=== PATIENT | female | born 2000 | race Caucasian/White ===

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

== ENCOUNTER 2018-01-03 14:38 | Emergency (ER) | payer BC ==
--- NOTE | 2018-01-03 15:56 | ER Document Report ---
HPI - HPI Pain Level: 4 Notes: Patient is a 17-year-old female with a history of ongoing left knee pain who presents to the ED complaining of acute left knee pain status post twist injury prior to arrival. Patient states that she was going on her stairs when she twisted her knee and then landed on the anterior part of her knee. Patient denies any head injury, loss of conscious, nausea/vomiting. Patient states that she has no other pain anywhere else. The pain does not radiate. Patient states that she is scheduled for a laparoscopic procedure in January with Dr. Newsome. She has no other complaints or concerns today. Denies any headache, fever, neck pain, URI, sore throat, chest pain, palpitations, syncope, cough, shortness of breath, wheeze, dyspnea, abdominal pain, nausea/vomiting/diarrhea, urinary retention, dysuria, hematuria, or rash. - ROS Systems Reviewed and Negative: Yes All other systems reviewed and negative - REPRODUCTIVE Reproductive: DENIES: : - MUSCULOSKELETAL Musculoskeletal: REPORTS: Extremity pain - left knee Past Medical History - Social History Smoking Status: Never Smoker Frequency of alcohol use: None Drug Abuse: None Family History: Reviewed & Not Pertinent Patient has suicidal ideation: No Patient has homicidal ideation: No Renal/ Medical History: Denies: Hx Peritoneal Dialysis - Immunizations Immunizations up to date: Yes Hx Diphtheria, Pertussis, Tetanus Vaccination: Yes Vertical Provider Document - CONSTITUTIONAL Agree With Documented VS: Yes Notes: PHYSICAL EXAMINATION: GENERAL: Well-appearing, well-nourished and in no acute distress. LUNGS: Breath sounds clear to auscultation bilaterally and equal. No wheezes rales or rhonchi. HEART: Regular rate and rhythm without murmurs, rubs, gallops. Musculoskeletal: Left knee: FROM to passive/active. Strength 5+/5. + mild tenderness to the anterior knee b/l. No obvious swelling, erythema, ecchymosis , or deformity noted. Shivani negative. Ligamentous stable, but pt does give me resistance in doing these tests. N/V intact distal. No calf tenderness or other bony tenderness appreciated. Extremities: No cyanosis, clubbing, or edema b/l. Peripheral pulses 2+. Capillary refill less than 3 seconds. NEUROLOGICAL: Normal speech, normal gait. Normal sensory, motor exams PSYCH: Normal mood, normal affect. SKIN: Warm, Dry, normal turgor, no rashes or lesions noted. - INFECTION CONTROL TRAVEL OUTSIDE OF THE [place] IN LAST 30 DAYS: No Course - Re-evaluation Re-evalutation: 01/03/18 17:15 Patient is an afebrile, well-hydrated, 17-year-old female who presents to the ED with left knee pain, suspect sprain versus strain at this time. Vitals are acceptable. PE is otherwise unremarkable for any neurovascular compromise, obvious tendon/ligament rupture, obvious fracture/dislocation, septic joint. X- ray was unremarkable for any acute pathology. Patient declined any knee immobilizer or crutches today. Recommend conservative measures for symptoms. Discussed this with her orthopedic provider this week. Return to the ED with any worsening/concerning symptoms otherwise as reviewed discharge. Recheck with your PCM in 1 week as well. Patient is in agreement. - Vital Signs Vital signs: Temp Pulse Resp BP Pulse Ox 98.6 F 75 18 126/56 H 99 01/03/18 14:52 01/03/18 14:52 01/03/18 14:52 01/03/18 14:52 01/03/18 14:52 Discharge - Discharge Clinical Impression: Left knee pain Qualifiers: Chronicity: acute Qualified Code(s): M25.562 - Pain in left knee Condition: Stable Disposition: HOME, SELF-CARE Instructions: Ice & Elevation ([facility]), Sprained Knee ([facility]) Additional Instructions: Rest, Ice, Compression, Elevation Tylenol/ibuprofen as needed Light stretches daily Strength exercises as able Moist heat and massage may help F/u with your PCP in 3-5 days for a recheck Discuss with your Orthopedic provider this week. Return to the ED with any worsening symptoms and/or development of fever, headache, chest pain, palpitations, syncope, shortness of breath, trouble breathing, abdominal pain, n/v/d, muscle weakness/paralysis, numbness/tingling, swelling, redness, or other worsening symptoms that are concerning to you. Forms: Elevated Blood Pressure Referrals: PADMINI HAJI MD [ACTIVE STAFF] - Follow up as needed
--- NOTE | 2018-01-03 17:07 | RADIOLOGY REPORT (SQ) ---
EXAM DESCRIPTION: KNEE LEFT 4 VIEW COMPLETED DATE/TIME: 01/03/2018 4:45 pm REASON FOR STUDY: left knee pain COMPARISON: 11/29/2012 NUMBER OF VIEWS: Four views. TECHNIQUE: AP, lateral, and both oblique radiographic images acquired of the left knee. LIMITATIONS: None. FINDINGS: MINERALIZATION: Normal. BONES: No acute fracture or dislocation. No worrisome bone lesions. JOINT: No effusion. SOFT TISSUES: No soft tissue swelling. No radio-opaque foreign body. OTHER: No other significant finding. IMPRESSION: NEGATIVE STUDY OF THE LEFT KNEE. NO RADIOGRAPHIC EVIDENCE OF ACUTE INJURY. TECHNICAL DOCUMENTATION: JOB ID: [id number] [employer]- All Rights Reserved Reading location - IP/workstation name: [email or web address]
[2018-01-03 17:26] VITALS: BP 116/61
== END 2018-01-03 17:25 | disposition home or self-care (01) ==
LOC: ER 14:38
DX: M25.562 Pain in left knee (principal)
CPT/HCPCS: 99283

== ENCOUNTER 2018-04-11 11:50 | Emergency (ER) | payer OTHER, BC ==
[2018-04-11] MEDS ORDERED: CYCLOBENZAPRINE HCL 10 MG TABLET PO ONE (13:03)
--- NOTE | 2018-04-11 13:05 | ER Document Report ---
ED Neck/Back Problem - General Chief Complaint: Neck and Upper Back Pain Stated Complaint: HEAD AND NECK PAIN Time Seen by Provider: 04/11/18 12:25 Mode of Arrival: Ambulatory Information source: Patient Notes: Patient is a 17-year-old female who presents with chief complaint of posterior neck pain. Patient reports that she works at [employer] and yesterday she was reaching over her head to grab a box when the box fell on top of her head. She reports that she has had pain to the back of her neck since the incident. Patient denies any fever, headache, vomiting or loss of consciousness. TRAVEL OUTSIDE OF THE [place] IN LAST 30 DAYS: No - Related Data Allergies/Adverse Reactions: No Known Allergies Allergy (Verified 04/11/18 11:51) Past Medical History - General Information source: Patient - Social History Smoking Status: Never Smoker Frequency of alcohol use: None Drug Abuse: None Family History: Reviewed & Not Pertinent Patient has suicidal ideation: No Patient has homicidal ideation: No - Medical History Medical History: Negative Renal/ Medical History: Denies: Hx Peritoneal Dialysis Surgical Hx: Negative - Immunizations Immunizations up to date: Yes Hx Diphtheria, Pertussis, Tetanus Vaccination: Yes Review of Systems - Review of Systems Constitutional: No symptoms reported EENT: No symptoms reported Cardiovascular: No symptoms reported Respiratory: No symptoms reported Gastrointestinal: No symptoms reported Genitourinary: No symptoms reported Female Genitourinary: No symptoms reported Musculoskeletal: See HPI Skin: No symptoms reported Hematologic/Lymphatic: No symptoms reported Neurological/Psychological: No symptoms reported Physical Exam - Vital signs Vitals: Temp Pulse Resp BP Pulse Ox 98.6 F 67 16 135/77 H 99 04/11/18 12:02 04/11/18 12:02 04/11/18 12:02 04/11/18 12:02 04/11/18 12:02 - Notes Notes: PHYSICAL EXAMINATION: GENERAL: Well-appearing, well-nourished and in no acute distress. HEAD: Atraumatic, normocephalic. EYES: Pupils equal round and reactive to light, extraocular movements intact, conjunctiva are normal. ENT: Nares patent, oropharynx clear without exudates. Moist mucous membranes. NECK: Normal range of motion, supple without lymphadenopathy LUNGS: Breath sounds clear to auscultation bilaterally and equal. No wheezes rales or rhonchi. HEART: Regular rate and rhythm without murmurs ABDOMEN: Soft, nontender, nondistended abdomen. No guarding, no rebound. No masses appreciated. Female : deferred Musculoskeletal: Normal range of motion, no pitting or edema. No cyanosis. Tenderness to palpation to posterior cervical spine. NEUROLOGICAL: Cranial nerves grossly intact. Normal speech, normal gait. Normal sensory, motor exams PSYCH: Normal mood, normal affect. SKIN: Warm, Dry, normal turgor, no rashes or lesions noted. Course - Re-evaluation Re-evalutation: Cervical spine x-rays are negative for any acute findings such as fractures or dislocations. Patient reports significant pain reduction after the muscle relaxer was given there is a muscle spasm noted on the x-ray. Will discharge patient home on Flexeril with close follow-up with her primary care provider. - Vital Signs Vital signs: Temp Pulse Resp BP Pulse Ox 98.4 F 63 18 131/75 H 100 04/11/18 14:22 04/11/18 14:22 04/11/18 14:22 04/11/18 14:22 04/11/18 14:22 Discharge - Discharge Clinical Impression: Cervical paraspinal muscle spasm Condition: Stable Disposition: HOME, SELF-CARE Additional Instructions: Muscle Strain with spasm You have strained a muscle -- torn the fibers within the muscle. This often occurs with strenuous exertion, or during an injury that suddenly stretches the muscle. The seriousness of a strain varies. Some strains heal within days, others cause problems for months. X-rays cannot show a muscle strain. X-rays are taken only if symptoms suggest that a fracture could be present. The usual treatment of a muscle strain is rest and ice packs. Sometimes, a sling, splint, or crutches may be necessary to rest the muscle. The muscle can be used again once pain subsides. Severe strains require a special exercise and stretching program to prevent permanent stiffness and disability. Your doctor will advise you if this will be necessary. Call the doctor immediately if pain or swelling becomes severe, or if numbness or discoloration develop. Prescriptions: Cyclobenzaprine HCl [Flexeril 10 mg Tablet] 10 mg PO TIDP PRN #15 tab PRN Reason: Ibuprofen 800 mg PO Q8 #30 tablet Forms: Return to Work
--- NOTE | 2018-04-11 13:47 | RADIOLOGY REPORT (SQ) ---
EXAM DESCRIPTION: CERV SP 4 OR 5 VIEWS COMPLETED DATE/TIME: 04/11/2018 1:24 pm REASON FOR STUDY: neck pain COMPARISON: None. NUMBER OF VIEWS: Five views. TECHNIQUE: AP, lateral, obliques and odontoid radiographic images acquired of the cervical spine. LIMITATIONS: None. FINDINGS: MINERALIZATION: Normal. ALIGNMENT: Reversal of cervical lordosis consistent with muscle spasm. VERTEBRAE: Vertebral bodies of normal height. DISCS: No significant osteophytes or sclerosis. Disc height maintained. FORAMINA: No osteophytes or foraminal narrowing. LATERAL AND POSTERIOR ELEMENTS: Facets, lateral masses and spinous processes without significant find ings. HARDWARE: None in the spine. SOFT TISSUES: No masses or calcifications. Lung apices clear. OTHER: No other significant finding. IMPRESSION: Cervical muscle spasm. Otherwise, normal cervical spine. TECHNICAL DOCUMENTATION: JOB ID: [id number] 2010 [employer]- All Rights Reserved Reading location - IP/workstation name: [email or web address]
[2018-04-11 14:25] VITALS: BP 131/75
== END 2018-04-11 14:24 | disposition home or self-care (01) ==
LOC: ER 11:50
DX: R25.2 Cramp and spasm (principal); M54.2 Cervicalgia; M54.6 Pain in thoracic spine
CPT/HCPCS: 72050; 99283

== ENCOUNTER 2018-07-06 19:29 | Emergency (ER) | payer BC, OTHER ==
[2018-07-06 19:46] VITALS: BP 126/63
--- NOTE | 2018-07-06 20:44 | RADIOLOGY REPORT (SQ) ---
EXAM DESCRIPTION: KNEE LEFT 4 VIEW COMPLETED DATE/TIME: 07/06/2018 8:36 pm REASON FOR STUDY: left knee pain COMPARISON: None. NUMBER OF VIEWS: Four views. TECHNIQUE: AP, lateral, and both oblique radiographic images acquired of the left knee. LIMITATIONS: None. FINDINGS: MINERALIZATION: Normal. BONES: No acute fracture or dislocation. No worrisome bone lesions. JOINT: No effusion. SOFT TISSUES: No soft tissue swelling. No radio-opaque foreign body. OTHER: No other significant finding. IMPRESSION: NEGATIVE STUDY OF THE LEFT KNEE. NO RADIOGRAPHIC EVIDENCE OF ACUTE INJURY. TECHNICAL DOCUMENTATION: JOB ID: [id number] [employer]- All Rights Reserved Reading location - IP/workstation name: [email or web address]
[2018-07-06] MEDS ORDERED: DEXAMETHASONE SOD PHOS INJ 10 MG/1 ML VIAL IM ONE (22:03)
--- NOTE | 2018-07-06 22:08 | ER Document Report ---
ED Extremity Problem, Lower - General Chief Complaint: Knee Pain Stated Complaint: KNEE PAIN Time Seen by Provider: 07/06/18 21:17 Mode of Arrival: Ambulatory Information source: Patient Notes: 17-year-old female presented to ED for complaint of left knee pain. She states she has a history of chronic pain to this knee but it is been very sharp after she bent to pick something up earlier today. She states she had a severe numbness and then a sharp pain. She states she has been to see Dr. barraza for the same knee in the past and gotten cortisone shots. She states she took ibuprofen 800 mg about 330 but the pain did not get better. Patient denies any falls or injuries. She is alert and oriented respirations regular and unlabored walking with a even steady gait. TRAVEL OUTSIDE OF THE [place] IN LAST 30 DAYS: No - HPI Location: Knee - Left Occurred: This afternoon Where: Work Onset/Duration: Sudden Quality of pain: Sharp, Throbbing Severity: Moderate Pain Level: 4 Recent injury: No Associated symptoms: Painful ambulation Exacerbated by: Hanging down, Movement, Walking Relieved by: Nothing - Related Data Allergies/Adverse Reactions: No Known Allergies Allergy (Verified 04/11/18 11:51) Past Medical History - General Information source: Patient - Social History Smoking Status: Never Smoker Cigarette use (# per day): No Chew tobacco use (# tins/day): No Smoking Education Provided: No Frequency of alcohol use: None Drug Abuse: None Occupation: [employer] Lives with: Parents Family History: Reviewed & Not Pertinent Patient has suicidal ideation: No Patient has homicidal ideation: No - Past Medical History Cardiac Medical History: Reports: None Pulmonary Medical History: Reports: None EENT Medical History: Reports: None Neurological Medical History: Reports: None Endocrine Medical History: Reports: None Renal/ Medical History: Reports: None Malignancy Medical History: Reports: None GI Medical History: Reports: None Musculoskeletal Medical History: Reports Hx Musculoskeletal Deformity, Reports Hx Musculoskeletal Trauma Skin Medical History: Reports None Psychiatric Medical History: Reports: None Traumatic Medical History: Reports: None Infectious Medical History: Reports: None Surgical Hx: Negative Past Surgical History: Reports: None - Immunizations Immunizations up to date: Yes Hx Diphtheria, Pertussis, Tetanus Vaccination: Yes Review of Systems - Review of Systems Constitutional: No symptoms reported EENT: No symptoms reported Cardiovascular: No symptoms reported Respiratory: No symptoms reported Gastrointestinal: No symptoms reported Genitourinary: No symptoms reported Female Genitourinary: No symptoms reported Musculoskeletal: Joint pain - Chronic left knee pain. denies: Joint swelling Skin: No symptoms reported Hematologic/Lymphatic: No symptoms reported Neurological/Psychological: No symptoms reported -: Yes All other systems reviewed and negative Physical Exam - Vital signs Vitals: Temp Pulse Resp BP Pulse Ox 98.9 F 76 16 126/63 H 100 07/06/18 19:43 07/06/18 19:43 07/06/18 19:43 07/06/18 19:43 07/06/18 19:43 Interpretation: Normal - General General appearance: Appears well, Alert - HEENT Head: Normocephalic, Atraumatic Eyes: Normal Pupils: PERRL - Respiratory Respiratory status: No respiratory distress Chest status: Nontender Breath sounds: Normal Chest palpation: Normal - Cardiovascular Rhythm: Regular Heart sounds: Normal auscultation Murmur: No - Abdominal Inspection: Normal Distension: No distension Bowel sounds: Normal Tenderness: Nontender Organomegaly: No organomegaly - Back Back: Normal, Nontender - Extremities General upper extremity: Normal inspection, Nontender, Normal color, Normal ROM , Normal temperature General lower extremity: Normal inspection, Normal color, Normal ROM, Normal temperature, Normal weight bearing. No: Jennifre's sign Knee: Tender, Pain with ROM, Patellar tendon intact. No: Abrasion, Deformity, Dislocation, Drawer's test instability, Ecchymosis, Instability, Joint effusion , Laceration, Laxity with valgus stress, Laxity with varus stress, Popliteal fossa tender, Tender joint line, Unable to bear weight - Neurological Neuro grossly intact: Yes Cognition: Normal Orientation: AAOx4 Leticia Coma Scale Eye Opening: Spontaneous Leticia Coma Scale Verbal: Oriented Leticia Coma Scale Motor: Obeys Commands Leticia Coma Scale Total: 15 Speech: Normal Motor strength normal: LUE, RUE, LLE, RLE Sensory: Normal - Psychological Associated symptoms: Normal affect, Normal mood - Skin Skin Temperature: Warm Skin Moisture: Dry Skin Color: Normal Course - Vital Signs Vital signs: Temp Pulse Resp BP Pulse Ox 98.9 F 77 16 126/63 H 100 07/06/18 19:43 07/06/18 22:41 07/06/18 22:41 07/06/18 19:43 07/06/18 22:41 - Diagnostic Test Radiology reviewed: Image reviewed, Reports reviewed Procedures - Immobilization Left Knee Time completed: 22:40 Pre-Proc Neuro Vasc Exam: Normal Immobilizer type: Kong wrap Performed by: DON Post-Proc Neuro Vasc Exam: Normal Alignment checked and good: Yes Discharge - Discharge Clinical Impression: Left knee pain Qualifiers: Chronicity: chronic Qualified Code(s): M25.562 - Pain in left knee Condition: Stable Disposition: HOME, SELF-CARE Additional Instructions: You were seen today for pain in your left knee. You state you have a history of chronic problems in your left knee. You state have received steroid shots in this knee in the past by Dr. Newsome. KONG WRAP: A compression dressing (kong wrap) has been placed. This helps hold the area still. It limits swelling and internal bleeding. The wrap should be comfortably snug -- not tight. You should feel a sense of pressure, but not severe pain under the wrap. Unless the physician tells you otherwise, you can adjust the wrap for comfort. If the wrap causes symptoms suggesting it's too tight -- uncomfortable pressure, swelling or discoloration beyond the wrap, numbness, or severe pain - - you must loosen the wrap. If these symptoms don't resolve promptly, return for re-evaluation. ICE & ELEVATION: Apply ice packs frequently against the painful area. Many different schedules are recommended, such as "20 minutes on, 20 minutes off" or "one hour ice, two hours rest." If you need to work, you may need to go longer between ice treatments. You should plan to have the area ice packed AT LEAST one- fourth of the time. The ice should be applied over the wrap, tape, or splint, or over a layer of cloth -- not directly against the skin. Some ice bags have a built-in cloth and can be put directly on the skin. Your injured part should be elevated as much as possible over the next 48 hours. Try to keep the injury above the level of the heart. Avoid use of the injured area. Elevation and rest will decrease the swelling. USE OF YEID-OJD-GYABYXZ IBUPROFEN: Ibuprofen (Advil, Nuprin, Medipren, Motrin IB) is a medication for fever and pain control. In addition, it has anti- inflammatory effects which may be beneficial, especially in the treatment of injuries. It's best to take ibuprofen with food. Persons with ulcer disease or allergy to aspirin should notify their physician of this before taking ibuprofen. Ibuprofen can be given every four to six hours, for a total of four doses daily. Age Pain or fever dose Antiinflammatory dose 6-8 yr 200 mg (1 tab) 200 mg (1 tab) 9-11 yr 200 mg (1 tab) 200-400 mg (1-2 tab) 11-14 yr 200-400 mg (1-2 tab) 400 mg (2 tab) 15-adult 400 mg (2 tab) 600 mg (3 tab) STEROID MEDICATION: You have been given an injection of medicine of the cortisone/steroid class. This medication is used to control inflammation or allergy. It is often continued as a pill for a short period of time, until the acute process subsides. There are usually no side effects from short-term use of cortisone-like medications. Some persons feel an increased sense of well-being and are not sleepy at bedtime. Long-term use of cortisone medications is best avoided, unless required for a severe condition. If your condition does not remit, or relapses after the course of corticosteroid medication, you should consult your physician. Knee Exercise Program It's important to strengthen the muscles around the knee. This protects the injured area and stabilizes a knee that's been loosened by ligament injury. EARLY - Even when motion of the knee is painful (even when wearing a splint ), you can begin isometric "quads" exercises. While sitting, hold the knee out, and contract the muscles to stiffen it. It shouldn't be straightened all the way -- stiffen it in a slightly-bent position. Lift the leg and draw a "T" with your foot, up to 100 times. When it becomes easy, add a weight on your foot. LATE - When the doctor advises you, you can begin moving the knee against resistance. The front muscles (quadriceps) are most important. While sitting at a [employer], straighten the knee forcefully while pushing a weight up with your ankle. Start with five to 10 pounds. Do 10 to 20 repetitions, increasing the weight as tolerated. Don't use more weight than is comfortable! Over a few weeks, work up to 35 to 50 pounds. Athletes should try to reach 70 to 90 pounds. FOLLOW-UP CARE: If you have been referred to a physician for follow-up care, call the physician s office for an appointment as you were instructed or within the next two days. If you experience worsening or a significant change in your symptoms, notify the physician immediately or return to the Emergency Department at any time for re-evaluation. Forms: Return to Work Referrals: PADMINI HAJI MD [ACTIVE STAFF] - Follow up as needed
== END 2018-07-06 22:41 | disposition home or self-care (01) ==
LOC: ER 19:29
DX: M25.562 Pain in left knee (principal); G89.29 Other chronic pain
CPT/HCPCS: 99283; 96372; 73564; J1100

== ENCOUNTER 2019-06-11 17:56 | Emergency (ER) | payer BC, MEDICAID ==
[2019-06-11 18:02] VITALS: BP 139/70
--- NOTE | 2019-06-11 18:44 | ER Document Report ---
HPI - HPI Time Seen by Provider: 06/11/19 18:36 Onset: Other Onset/Duration: Persistent Quality of pain: Achy Pain Level: 3 Context: This 18-year-old female presents emergency department with low back pain. Reports she was working at [employer] when she lifted a heavy trash can full of grease in her back started hurting. Denies urinary or bowel incontinence or retention. Denies paresthesia. Denies history of IV drug use. Denies history of steroids. No recent trauma. Denies fever vomiting diarrhea. Reports she is been taking Motrin without relief of symptoms. 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 Associated Symptoms: None Exacerbated by: Denies Relieved by: Denies Similar symptoms previously: No Recently seen / treated by doctor: No - REPRODUCTIVE Reproductive: DENIES: : Past Medical History - General Information source: Patient Last Menstrual Period: beginning of may - Social History Smoking Status: Current Some Day Smoker Cigarette use (# per day): Yes Frequency of alcohol use: None Drug Abuse: None Occupation: [employer] Family History: Reviewed & Not Pertinent Patient has suicidal ideation: No Patient has homicidal ideation: No Renal/ Medical History: Denies: Hx Peritoneal Dialysis Musculoskeletal Medical History: Reports Hx Musculoskeletal Deformity, Reports Hx Musculoskeletal Trauma Surgical Hx: Negative - Immunizations Immunizations up to date: Yes Hx Diphtheria, Pertussis, Tetanus Vaccination: Yes Vertical Provider Document - CONSTITUTIONAL Agree With Documented VS: Yes Exam Limitations: No Limitations General Appearance: WD/WN, No Apparent Distress - INFECTION CONTROL TRAVEL OUTSIDE OF THE [place] IN LAST 30 DAYS: No - HEENT HEENT: Atraumatic, Normocephalic - NECK Neck: Normal Inspection, Supple. negative: Lymphadenopathy-Left, Lymphadenopathy-Right - RESPIRATORY Respiratory: Breath Sounds Normal, No Respiratory Distress - CARDIOVASCULAR Cardiovascular: Regular Rate - GI/ABDOMEN Gastrointestinal: Abdomen Soft, Abdomen Non-Tender - BACK Back: Normal Inspection - Patient complains of low back pain denies flank pain good distal movement and sensation no vertebral tenderness no erythema no swelling no warmth good distal movement and sensation no weakness. negative: CVA Tenderness-Right, CVA Tenderness-Left - MUSCULOSKELETAL/EXTREMETIES Musculoskeletal/Extremeties: MAEW, FROM - NEURO Level of Consciousness: Awake, Alert, Appropriate Motor/Sensory: No Motor Deficit - DERM Integumentary: Warm, Dry Course - Re-evaluation Re-evalutation: 06/11/19 19:02 She was instructed to lift with her legs avoid heavy lifting take Motrin for the pain return for worsening symptoms she verbalized understanding all instructions. Low suspicion for any meningitis, fracture, expanding/ruptured AAA, cauda equina syndrome, epidural mass lesion/abscess, herniated disc causing severe spinal stenosis, or other systemic infection at this time. Patient is aware that this condition can change from initial presentation and that she needs monitor symptoms closely for any acute changes. Dictation of this chart was performed using voice recognition software; therefore, there may be some unintended grammatical errors. - Vital Signs Vital signs: Temp Pulse Resp BP Pulse Ox 98.3 F 69 17 139/70 H 98 06/11/19 17:58 06/11/19 17:58 06/11/19 17:58 06/11/19 17:58 06/11/19 17:58 Discharge - Discharge Clinical Impression: Low back pain Qualifiers: Chronicity: unspecified Back pain laterality: unspecified Sciatica presence: without sciatica Qualified Code(s): M54.5 - Low back pain Condition: Stable Disposition: HOME, SELF-CARE Instructions: Ice Packs ([facility]), Low Back Pain ([facility]) Additional Instructions: *You have been evaluated for low back pain *Take Motrin as indicated Avoid heavy lifting *Rest/Ice packs to your back 20 minutes on 20 minutes off *Follow up with a primary care provider within 1 week for recheck *Return to ED for worsening condition, changes, needs Monitor your blood pressure. Your blood pressure was elevated today. This may be because you were anxious, in pain or because you need medication. It is important to follow up with your primary care provider for full evaluation. Forms: Elevated Blood Pressure, Return to Work
== END 2019-06-11 18:43 | disposition home or self-care (01) ==
LOC: ER 17:56
DX: M54.5 Low back pain (principal); X50.0XXA Overexertion from strenuous movement or load, initial encounter; F17.210 Nicotine dependence, cigarettes, uncomplicated
CPT/HCPCS: 99283

== ENCOUNTER 2019-06-19 10:40 | Emergency (ER) | payer BC, MEDICAID ==
[2019-06-19 10:45] VITALS: BP 122/61
--- NOTE | 2019-06-19 11:50 | ER Document Report ---
HPI - HPI Patient complains to provider of: low back pain Time Seen by Provider: 06/19/19 11:43 Onset/Duration: Gradual, Intermittent, Waxing and waning Quality of pain: Achy, Dull Severity: Moderate Pain Level: 3 Context: This is a 18-year-old female pt with the listed pmh, presenting with an acute exacerbation of their chronic intermittent lower back pain. Patient states that this has been ongoing intermittently x 2+ weeks. she is unsure if she just slept wrong or moved wrong. states she felt a mild ache, no pop or pull, about a week ago when she was leaning over to get something, not heavy, and twisted weird and has felt the pain since. she was seen here for similar a few weeks ago and states the naproxen and muscle relaxers she was given then helped and her pain improved up unitl she twisted weird. hx of a neg lumbar xr here in 2013. pain not controlled with otc meds. she does request a work note. denies . lmp is now. Patient states that the pain is a sharp achy 6 out of 10 pain with radiation to her bilat hips. Patient states that movement and palpation make the pain worse and rest makes the pain better. Patient denies any numbness, ting ling, change of bowel or bladder habits or signs or symptoms of saddle anesthesia. Patient states that secondary to the pain, they have come to the emergency department. No spinal surgeries. No other falls or trauma. no IV drug use. no hx of diabetes or asthma. no recent abx or steroids. no fevers, uti sx, or genitalia complaints. pt able to walk. pt hasn't sought care otherwise until now. Patient denies all other complaints at this time. Exacerbated by: Movement Relieved by: Remaining still Similar symptoms previously: Yes Recently seen / treated by doctor: Yes - ROS Systems Reviewed and Negative: Yes All other systems reviewed and negative - To include 10 systems, unless mentioned in the hpi. - REPRODUCTIVE Reproductive: DENIES: : Notes: LMP now. Past Medical History - General Information source: Patient, COUNT INCLUDES [facility] Records - Social History Smoking Status: Former Smoker Chew tobacco use (# tins/day): No Frequency of alcohol use: None Drug Abuse: None Family History: Reviewed & Not Pertinent Patient has suicidal ideation: No Patient has homicidal ideation: No Pulmonary Medical History: Denies: Hx Asthma Endocrine Medical History: Denies: Hx Diabetes Mellitus Type 1, Hx Diabetes Mellitus Type 2 Renal/ Medical History: Denies: Hx Peritoneal Dialysis Musculoskeletal Medical History: Reports Other - degenerative disc dz Traumatic Medical History: Denies: Hx Spine Fracture Infectious Medical History: Denies: Hx Hepatitis, Hx HIV Past Surgical History: Reports: Other - no spinal surgeries. Denies: Hx Neurologic Surgery, Hx Orthopedic Surgery - Immunizations Immunizations up to date: Yes Hx Diphtheria, Pertussis, Tetanus Vaccination: Yes Vertical Provider Document - CONSTITUTIONAL Agree With Documented VS: Yes Exam Limitations: No Limitations General Appearance: WD/WN Notes: Vital signs: All vital signs were reviewed per nursing notes. Gen. Appearance: Nontoxic, patient of stated age, sitting comfortably in the bed but appears to have some discomfort when moving her lower back. pleasant, obese young black female, smiling, speaking in full sentences, in no sign of resp distress, nontoxic, adult female acquaintance at bedside Psychiatric: Alert and oriented x3, pleasant and very conversational, normal affect. Skin: Warm, pink, dry, normal turgor, no rashes. no grossly visible overlying skin changes or signs of trauma. HEENT: Normocephalic, atraumatic, no appiah signs. no raccoon eyes, pupils are equal and reactive to light, extraocular muscles intact, mucosal membranes moist, pink conjunctiva, no pharyngeal erythema, no tonsilar exudate. no drooling, tripoding, voice change or stridor, uvula midline. tongue protrudes midline Neck: Supple, no tenderness, no lymphadenopathy. full rom and full strength. no meningeal signs. no signs of central cord syndrome CV: Regular rate and rhythm, Lungs: Clear to auscultation bilaterally, no wheezes, symmetrical chest rise. no chest wall ttp Abdomen: Soft, nontender, nondistended, good bowel sounds, no rebound, rigidity, guarding or peritoneal signs. No CVA tenderness bilaterally. This is a nonacute abdomen. No tenderness over McBurney's point. no grossly visible or palpable abdominal hernias Genitalia: pt deferred Rectal: deferred; however, no sign of loss of bowel or bladder, no soiling of clothing Back: There is increased tissue tension over the lower paralumbar musculature on the bilat sides. Palpation to this region did reproduce patient's pain exactly. There is no tenderness to palpation along the midline of the cervical, thoracic or lumbar spine. There are no step-offs or deformities noted. no overlying skin changes. Extremities: Distal pulses two out of four, good capillary refill, no edema, cyanosis or clubbing. full rom and full strength in all extremities with pain on bilat hip flexion and extension. no swelling or ttp of the extremities. slight antalgic gait secondary only to pain. 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 neg jose sign. neg srivastava squeeze. no drop foot. no shortening or rotation of the limbs. no obvious deformities. Neuro: Cranial nerves II through XII intact, normal speech, cerebellar function intact. Symmetric smile and faces. reflexes wnl. motor and sensation intact to light touch. - INFECTION CONTROL TRAVEL OUTSIDE OF THE [place] IN LAST 30 DAYS: No Course - Re-evaluation Re-evalutation: 06/19/19 11:53 This patient presents with an acute exacerbation of their chronic lower back pain with sciatica. There are no signs or symptoms of saddle anesthesia or change in bowel or bladder habits. There are no current findings on examination indicative of spinal cord involvement. no uti sx. no fall or trauma so imaging wasn't done. pain likely musculoskeletal and reproducible on exam. she responded well to tx here. states naproxen worked well for her in the past however she is out of that and the muscle relaxers. will dc with naproxen, robaxin, and lidocaine patches. advised sx care. gave medication precautions. she also requests a work note. Patient will followup with PCP/neurosurg within 2-4 days. Patient will return immediately to the emergency department with any worsening symptoms. Patient understands and was in agreement with treatment plan. Vss. Afebrile. Well appearing. Satting well on ra. Neurononfocal. no sign of cauda equina, central cord syndrome or spinal cord involvement. According to the dc drug website, she hasn't received any narcotics in the last 2 yrs. On reexam, pt improved with tx listed. remained stable. nontoxic. well appearing. pain controlled. tolerating po. requesting to go home. neurononfocal. Documentation achieved through voice recording which may lead to some occasional accidental typographical errors. Extensive efforts have been made to proof read documentation to make sure these are the least as possible. Category Date Time Status Dexamethasone Sod Phosphate [Decadron Inj 10 mg/1 ml Med 06/19/19 12:52 Discontinued Vial] 10 mg INJ NOW ONE Methocarbamol [Robaxin 500 mg Tablet] Med 06/19/19 12:52 Discontinued 1,000 mg PO NOW ONE Naproxen [Naprosyn 250 mg Tablet] Med 06/19/19 12:51 Discontinued 500 mg PO NOW ONE - Vital Signs Vital signs: Temp Pulse Resp BP Pulse Ox 98.2 F 72 14 122/61 100 06/19/19 10:44 06/19/19 10:44 06/19/19 10:44 06/19/19 10:44 06/19/19 10:44 Discharge - Discharge Clinical Impression: Low back pain Qualifiers: Chronicity: unspecified Back pain laterality: bilateral Sciatica presence: with sciatica Sciatica laterality: bilateral sciatica Qualified Code(s): M54.42 - Lumbago with sciatica, left side; M54.41 - Lumbago with sciatica, right side Sciatica Qualifiers: Laterality: bilateral Qualified Code(s): M54.31 - Sciatica, right side; M54.32 - Sciatica, left side Condition: Good Disposition: HOME, SELF-CARE Instructions: Low Back Pain ([facility]) Additional Instructions: Follow-up with PCP in 1 to 2 days. Return for any worsening symptoms. Do not take any other NSAIDs with the naproxen. Do not drive, operate machinery, or work while taking the muscle relaxer as it can make you sleepy. Ice/heat to your back. Take the medication as prescribed. Prescriptions: Lidocaine [Lidocaine Pain Relief] 1 each TP DAILY #10 adh..patch Naproxen 500 mg PO BID PRN #20 tablet PRN Reason: Methocarbamol [Robaxin 500 mg Tablet] 500 mg PO QID PRN #20 tablet PRN Reason: Muscle Spasms Forms: Return to Work
[2019-06-19] MEDS ORDERED: NAPROXEN 250 MG TABLET PO ONE (12:51)
[2019-06-19] MEDS ORDERED: DEXAMETHASONE SOD PHOS INJ 10 MG/1 ML VIAL INJ ONE (12:52)
[2019-06-19] MEDS ORDERED: METHOCARBAMOL 500 MG TABLET PO ONE (12:52)
== END 2019-06-19 13:35 | disposition home or self-care (01) ==
LOC: ER 10:40
DX: G89.29 Other chronic pain (principal); M54.41 Lumbago with sciatica, right side; M54.42 Lumbago with sciatica, left side; E66.9 Obesity, unspecified; Z87.891 Personal history of nicotine dependence
CPT/HCPCS: 99283; 96374; J1100

== ENCOUNTER 2020-05-12 17:29 | Emergency (ER) | payer BC, MEDICAID ==
[2020-05-12] MEDS ORDERED: ONDANSETRON HCL INJ/PF 4 MG/2 ML SDV IV ONE (19:45)
[2020-05-12] MEDS ORDERED: RINGERS SOLUTION,LACTATED 1,000 ML IV ONE (19:45)
[2020-05-12] MEDS ORDERED: DIPHENHYDRAMINE HCL 50 MG/ML VIAL IV ONE (19:48)
--- NOTE | 2020-05-12 19:48 | ER Document Report ---
ED Medical Screen (RME) - General Stated Complaint: POSSIBLE DEHYDRATION - DR REFERRED Time Seen by Provider: 05/12/20 19:40 Mode of Arrival: Ambulatory Information source: Patient Notes: HPI; 19-year-old female presents to the emergency room complaining of headache, nausea, vomiting that started Friday. States she found out on Friday that 2 of her coworkers tested positive for COVID-19. She has not been tested. She states the vomiting stopped on Friday. After she went to see her primary care physician who gave her nausea medication. Denies any fevers. Denies any cough. Denies any recent travel. No history of migraines. Has been taking ibuprofen for headaches with some relief. Denies worst headache of her life. Denies any sudden thunderclap. PE: Alert and oriented x3. Mild distress noted. Lungs: Clear to auscultation without rales, rhonchi, wheezes. Heart: Regular rate and rhythm without murmurs, rubs, gallops. I have greeted and performed a rapid initial assessment of this patient. A comprehensive ED assessment and evaluation of the patient, analysis of test results and completion of the medical decision making process will be conducted by additional ED providers. I have specifically instructed the patient or family members with the patient to immediately return to any nursing staff should anything change in the patient's condition or with their chief complaint. TRAVEL OUTSIDE OF THE [place] IN LAST 30 DAYS: No - Related Data Allergies/Adverse Reactions: No Known Allergies Allergy (Verified 06/19/19 12:36) Home Medications: zofran Past Medical History - Social History Frequency of alcohol use: None Drug Abuse: None Pulmonary Medical History: Denies: Hx Asthma Endocrine Medical History: Denies: Hx Diabetes Mellitus Type 1, Hx Diabetes Mellitus Type 2 Renal/ Medical History: Denies: Hx Peritoneal Dialysis GI Medical History: Denies: Hx Hepatitis Musculoskeltal Medical History: Reports Hx Musculoskeletal Deformity, Reports Hx Musculoskeletal Trauma Traumatic Medical History: Denies: Hx Spine Fracture Infectious Medical History: Denies: Hx Hepatitis, Hx HIV Past Surgical History: Reports: Other - no spinal surgeries. Denies: Hx Neurologic Surgery, Hx Orthopedic Surgery - Immunizations Immunizations up to date: Yes Hx Diphtheria, Pertussis, Tetanus Vaccination: Yes Physical Exam - Vital signs Vitals: Temp Pulse Resp BP Pulse Ox 98.5 F 77 16 110/67 100 08/21/20 18:03 05/12/20 18:03 05/12/20 18:03 05/12/20 18:03 05/12/20 18:03 Course - Vital Signs Vital signs: Temp Pulse Resp BP Pulse Ox 98.5 F 77 16 110/67 100 05/12/20 18:03 05/12/20 18:03 05/12/20 18:03 05/12/20 18:03 05/12/20 18:03
[2020-05-12 20:24] LABS: ABSOLUTE LYMPHOCYTES (AUTO) 1.6 10^3/uL (0.5-4.7); ABSOLUTE MONOCYTES (AUTO) 0.8 10^3/uL (0.1-1.4); BASOPHILS % (AUTO) 0.3 % (0-2); EOSINOPHILS % (AUTO) 0.4 % (0-6); HEMATOCRIT 42.7 % (36.0-47.0); HEMOGLOBIN 14.1 g/dL (12.0-15.5); LYMPHOCYTES % (AUTO) 36.9 % (13-45); MEAN CORPUSCULAR HEMOGLOBIN 28.6 pg (27.0-33.4); MEAN CORPUSCULAR HGB CONC 33.1 g/dL (32.0-36.0); MEAN CORPUSCULAR VOLUME 86 fl (80-97); MONOCYTES % (AUTO) 17.2 % (3-13); PLATELET COUNT 264 10^3/uL (150-450); RED BLOOD COUNT 4.94 10^6/uL (3.72-5.28); RED CELL DISTRIBUTION WIDTH 14.3 % (11.5-14.0); SEGMENTED NEUTROPHILS % (AUTO) 45.2 % (42-78); TOTAL CELLS COUNTED % (AUTO) 100 %; WHITE BLOOD COUNT 4.5 10^3/uL (4.0-10.5)
[2020-05-12 20:38] LABS: ALBUMIN 4.4 g/dL (3.5-5.0); ALKALINE PHOSPHATASE 82 U/L (38-126); ANION GAP 10 (5-19); ASPARTATE AMINO TRANSFERASE 25 U/L (14-36); BILIRUBIN,TOTAL 0.4 mg/dL (0.2-1.3); BLOOD UREA NITROGEN 13 mg/dL (7-20); CALCIUM 9.5 mg/dL (8.4-10.2); CARBON DIOXIDE 24 mmol/L (22-30); CHLORIDE 105 mmol/L (98-107); GLUCOSE 84 mg/dL (75-110); POTASSIUM 4.9 mmol/L (3.6-5.0); TOTAL PROTEIN 7.7 g/dL (6.3-8.2)
--- NOTE | 2020-05-12 20:38 | ER Document Report ---
ED General - General Chief Complaint: Headache Stated Complaint: POSSIBLE DEHYDRATION - DR REFERRED Time Seen by Provider: 05/12/20 19:40 Primary Care Provider: RAFIQ VILLA PA-C [Primary Care Provider] - Follow up as needed Mode of Arrival: Ambulatory Notes: Patient is a 19-year-old female that comes emergency department for chief complaint of body aches, congestion, intermittent headaches, nausea, and several episodes of vomiting. She states symptoms started approximately 4 days ago, she had persistent vomiting for about 2 days but this did resolve. She states she saw her primary care provider and she was prescribed nausea medication. She denies any particular abdominal pain, denies cough, denies neck stiffness. Ibuprofen has been helping with her headaches. She denies feeling feverish. 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 Patient is on Depo-Provera, takes no daily medications, denies any past medical history. TRAVEL OUTSIDE OF THE [place] IN LAST 30 DAYS: No - Related Data Allergies/Adverse Reactions: No Known Allergies Allergy (Verified 06/19/19 12:36) Home Medications: zofran Past Medical History - General Information source: Patient - Social History Smoking Status: Never Smoker Frequency of alcohol use: None Drug Abuse: None Family History: Reviewed & Not Pertinent Pulmonary Medical History: Denies: Hx Asthma Endocrine Medical History: Denies: Hx Diabetes Mellitus Type 1, Hx Diabetes Mellitus Type 2 Renal/ Medical History: Denies: Hx Peritoneal Dialysis GI Medical History: Denies: Hx Hepatitis Musculoskeletal Medical History: Reports Hx Musculoskeletal Deformity, Reports Hx Musculoskeletal Trauma Traumatic Medical History: Denies: Hx Spine Fracture Infectious Medical History: Denies: Hx Hepatitis, Hx HIV Past Surgical History: Reports: Other - no spinal surgeries. Denies: Hx Neurologic Surgery, Hx Orthopedic Surgery - Immunizations Immunizations up to date: Yes Hx Diphtheria, Pertussis, Tetanus Vaccination: Yes Review of Systems - Review of Systems Constitutional: See HPI EENT: See HPI Cardiovascular: No symptoms reported Respiratory: No symptoms reported Gastrointestinal: See HPI Genitourinary: No symptoms reported Female Genitourinary: No symptoms reported Musculoskeletal: No symptoms reported Skin: No symptoms reported Hematologic/Lymphatic: No symptoms reported Neurological/Psychological: No symptoms reported Physical Exam - Vital signs Vitals: Temp Pulse Resp BP Pulse Ox 98.5 F 77 16 110/67 100 08/21/20 18:03 05/12/20 18:03 05/12/20 18:03 05/12/20 18:03 05/12/20 18:03 - Notes Notes: GENERAL: Alert, interacts well. No acute distress. HEAD: Normocephalic, atraumatic. EYES: Pupils equal, round, and reactive to light. Extraocular movements intact. ENT: Oral mucosa moist, tongue midline. Oropharynx unremarkable. Airway patent. Mild nasal congestion, sinuses nontender, ear canals unremarkable, TMs unremarkable. NECK: Full range of motion. Supple. Trachea midline. No lymphadenopathy. LUNGS: Clear to auscultation bilaterally, no wheezes, rales, or rhonchi. No respiratory distress. Non-tender chest wall. HEART: Regular rate and rhythm. No murmur ABDOMEN: Soft, non-tender. Non-distended. No guarding or rigidity EXTREMITIES: Moves all 4 extremities spontaneously. No edema, normal radial and dorsalis pedis pulses bilaterally. No cyanosis. BACK: no cervical, thoracic, lumbar midline tenderness. No saddle anesthesia, normal distal neurovascular exam. Moves all extremities in full range of motion. NEUROLOGICAL: Alert and oriented x3. Normal speech. Cranial nerves II through XII grossly intact. Strength 5/5 in all extremities. PSYCH: Normal affect, normal mood. SKIN: Warm, dry, normal turgor. No rashes or lesions noted. Course - Re-evaluation Re-evalutation: Patient smiling and well-appearing. No nuchal rigidity, unremarkable oropharyngeal exam, soft benign abdomen, clear lungs. Vital signs unremarkable. Patient has sinus congestion and reports sinus pressure/discomfort. On reevaluation patient sleeping and easily aroused. Laboratory work-up unremarkable and nonspecific. Patient requesting COVID testing, this was performed, patient will be started on symptom management, provided with work release, discussed return precautions, discussed quarantine specifics. Patient states appreciation and agreement. Stable and well-appearing at time of discharge. - Vital Signs Vital signs: Temp Pulse Resp BP Pulse Ox 98.4 F 63 20 130/75 H 99 05/12/20 22:55 05/12/20 22:55 05/12/20 22:55 05/12/20 22:55 05/12/20 22:55 - Laboratory Result Diagrams: 05/12/20 20:00 05/12/20 20:00 Laboratory results interpreted by me: 05/12/20 05/12/20 20:00 20:16 RDW 14.3 H Moffat % (Auto) 17.2 H Urine Ascorbic Acid 40 H Discharge - Discharge Clinical Impression: Dehydration, Sinus congestion Vomiting Qualifiers: Vomiting type: unspecified Vomiting Intractability: non-intractable Nausea presence: with nausea Qualified Code(s): R11.2 - Nausea with vomiting, unspecified Headache Qualifiers: Headache type: unspecified Headache chronicity pattern: episodic headache Intractability: not intractable Qualified Code(s): R51 - Headache Condition: Stable Disposition: HOME, SELF-CARE Additional Instructions: You have been treated for dehydration, your remaining evaluation is reassuring. I do suspect this is a viral illness and this should simply resolve with time. I recommend the Sudafed and nasal spray for your congestion and headache, you can take antihistamines at night such as Benadryl to help with postnasal drip and sleep. You can take 600 mg of ibuprofen and 1000 mg of Tylenol together every 6 hours as needed for headaches and body aches. Drink plenty of fluids and rest. Symptoms should go away with time. Follow-up with primary care. You will be contacted with your results from the COVID-19 test, please quaranti ne until you are given additional instructions. Return for any concerning symptoms including difficulty breathing, chest pain, uncontrolled vomiting, severe worsening headache, or any other concerning or worsening symptoms. As a person under investigation for COVID-19, the [place] Department of Health and Human Services (division on public health) advises you to adhere to t he following guidance until your test results are reported to you. If your test result is positive, you will receive additional information from your provider and your local health department at that time. Remain at home until you are cleared by the health provider or public health authorities. Keep a log of visitors to your home, notify any visitors to your home of your isolation status. If you plan to move to a new address or leave the [facility], notify the local health department in your County. Call your Doctor or seek care if you have an urgent medical need. Before seeking medical care, call him to get instructions from the provider before arriving at the medical office, clinic, or hospital. Notify them that you are being tested for the virus (COVID-19) so that arrangements can be made, as necessary, to prevent transmission to others in the healthcare setting. Next, notify the local health department in your county. If a medical emergency arises and you need to call 911, inform the first responders that you are being tested for the virus that causes COVID-19. Next, notify the local health department in your county. Prescriptions: Fluticasone Propionate [Flonase Nasal [place] 50 Mcg/[place] 16 gm] 2 sprays NASL Q12 #1 inhaler Promethazine HCl [Phenergan 25 mg Tablet] 25 mg PO Q6H PRN #15 tablet PRN Reason: Pseudoephedrine HCl [Sudafed 12 Hour] 120 mg PO Q12 PRN #14 tablet.er PRN Reason: Forms: Return to Work Referrals: RAFIQ VILLA PA-C [Primary Care Provider] - Follow up as needed
[2020-05-12 21:12] LABS: APPEARANCE,URINE CLEAR; BILIRUBIN,URINE NEGATIVE (NEGATIVE); COLOR,URINE YELLOW; GLUCOSE, URINE NEGATIVE (NEGATIVE); KETONES,URINE NEGATIVE (NEGATIVE); LEUKOCYTE ESTERASE,URINE NEGATIVE (NEGATIVE); NITRITE,URINE NEGATIVE (NEGATIVE); PROTEIN,URINE NEGATIVE (NEGATIVE); UROBILINOGEN,URINE NEGATIVE mg/dL (<2.0)
[2020-05-12] MEDS ORDERED: KETOROLAC TROMETHAMINE INJ/PF 30 MG/1 ML SDV IV ONE (21:30)
[2020-05-12 22:59] VITALS: BP 130/75
== END 2020-05-12 22:56 | disposition home or self-care (01) ==
LOC: ER 17:29
DX: U07.1 COVID-19 (principal); E86.0 Dehydration; R11.2 Nausea with vomiting, unspecified; R09.81 Nasal congestion; R51 Headache; M79.10 Myalgia, unspecified site; Z79.899 Other long term (current) drug therapy
CPT/HCPCS: 99284; 96361; 96374; 96375; 36415; 84703; 85025; 87635; 80053; 81001; J1200; J1885; J2405; J7120; C9803